=== PATIENT | female | born 1970 | race Caucasian/White ===

== ENCOUNTER 2019-03-09 22:15 | Emergency (ER) | payer BC, OTHER ==
[2019-03-10] MEDS ORDERED: ACETAMINOPHEN 325 MG TABLET PO ONE (00:17)
[2019-03-10 00:50] LABS: APPEARANCE,URINE CLOUDY; BILIRUBIN,URINE NEGATIVE (NEGATIVE); COLOR,URINE YELLOW; GLUCOSE, URINE NEGATIVE (NEGATIVE); KETONES,URINE NEGATIVE (NEGATIVE); LEUKOCYTE ESTERASE,URINE NEGATIVE (NEGATIVE); NITRITE,URINE NEGATIVE (NEGATIVE); PROTEIN,URINE 100 mg/dL (NEGATIVE); URINE SPECIFIC GRAVITY 1.029; UROBILINOGEN,URINE NEGATIVE mg/dL (<2.0)
[2019-03-10] MEDS ORDERED: ONDANSETRON HCL INJ/PF 4 MG/2 ML SDV IV ONE (01:15)
[2019-03-10] MEDS ORDERED: KETOROLAC TROMETHAMINE INJ/PF 30 MG/1 ML SDV IV ONE (01:16)
[2019-03-10] MEDS ORDERED: OXYCODONE-ACETAMINOPHEN 5-325 MG TABLET PO ONE (01:16)
--- NOTE | 2019-03-10 01:18 | ER Document Report ---
ED Medical Screen (RME) - General Chief Complaint: Lower Abdominal Pain Stated Complaint: ABDOMINAL PAIN Time Seen by Provider: 03/10/19 01:10 Primary Care Provider: MYRNA STOVER MD [Primary Care Provider] - Follow up as needed Notes: 48-year-old female with chief complaint of sharp pain in her left abdomen that radiates around her left side and flank, symptoms started tonight. Pain is intermittently much worse. She vomited. She denies fever/chills. She is currently on menstrual cycle. She does have a history of kidney stones but states this does not feel identical. Only surgeries are C-sections. TRAVEL OUTSIDE OF THE [place] IN LAST 30 DAYS: No - Related Data Allergies/Adverse Reactions: No Known Allergies Allergy (Unverified 03/09/19 22:18) Physical Exam - Vital signs Vitals: Temp Pulse Resp BP Pulse Ox 98.2 F 77 16 150/88 H 98 03/09/19 22:23 03/09/19 22:23 03/09/19 22:23 03/09/19 22:23 03/09/19 22:23 - Abdominal Tenderness: Tender - Generalized left-sided abdominal tenderness without spec ific area of tenderness or guarding - Back Back: No: CVA tenderness Course - Re-evaluation Re-evalutation: Patient has hematuria but she is also on her menstrual cycle. The pain is the worst over the left side just adjacent to the left upper quadrant. Slightly nonspecific, possibly stone. She is obviously uncomfortable. Medicating, work- up pending. I have greeted and performed a rapid initial assessment of this patient. A comprehensive ED assessment and evaluation of the patient, analysis of test results and completion of the medical decision making process will be conducted by additional ED providers. - Vital Signs Vital signs: Temp Pulse Resp BP Pulse Ox 98.2 F 77 16 150/88 H 98 03/09/19 22:23 03/09/19 22:23 03/09/19 22:23 03/09/19 22:23 03/09/19 22:23 - Laboratory Laboratory results interpreted by me: 03/10/19 00:19 Urine Protein 100 H Urine Blood LARGE H Doctor's Discharge - Discharge Referrals: MYRNA STOVER MD [Primary Care Provider] - Follow up as needed
[2019-03-10] MEDS ORDERED: NORMAL SALINE 1000 ML 1,000 ML IV ONE (02:28)
[2019-03-10] MEDS ORDERED: MORPHINE SULFATE 10 MG/ML INJ IV ONE (02:28)
[2019-03-10 02:43] LABS: ABSOLUTE BASOPHILS # (AUTO) 0.1 10^3/uL (0.0-0.2); ABSOLUTE LYMPHOCYTES (AUTO) 1.7 10^3/uL (0.5-4.7); ABSOLUTE MONOCYTES (AUTO) 0.4 10^3/uL (0.1-1.4); ABSOLUTE NEUT (AUTO) 8.2 10^3/uL (1.7-8.2); BASOPHILS % (AUTO) 0.6 % (0-2); EOSINOPHILS % (AUTO) 0.4 % (0-6); HEMATOCRIT 34.4 % (36.0-47.0); HEMOGLOBIN 11.6 g/dL (12.0-15.5); LYMPHOCYTES % (AUTO) 16.1 % (13-45); MEAN CORPUSCULAR HEMOGLOBIN 27.5 pg (27.0-33.4); MEAN CORPUSCULAR HGB CONC 33.8 g/dL (32.0-36.0); MEAN CORPUSCULAR VOLUME 82 fl (80-97); MONOCYTES % (AUTO) 3.6 % (3-13); PLATELET COUNT 322 10^3/uL (150-450); RED BLOOD COUNT 4.22 10^6/uL (3.72-5.28); RED CELL DISTRIBUTION WIDTH 14.8 % (11.5-14.0); SEGMENTED NEUTROPHILS % (AUTO) 79.3 % (42-78); TOTAL CELLS COUNTED % (AUTO) 100 %; WHITE BLOOD COUNT 10.3 10^3/uL (4.0-10.5)
[2019-03-10 02:57] LABS: ALANINE AMINOTRANSFERASE 23 U/L (9-52); ALBUMIN 4.2 g/dL (3.5-5.0); ALKALINE PHOSPHATASE 78 U/L (38-126); ANION GAP 8 (5-19); ASPARTATE AMINO TRANSFERASE 21 U/L (14-36); BILIRUBIN,DIRECT 0.2 mg/dL (0.0-0.4); BILIRUBIN,TOTAL 0.3 mg/dL (0.2-1.3); BLOOD UREA NITROGEN 15 mg/dL (7-20); CALCIUM 9.7 mg/dL (8.4-10.2); CARBON DIOXIDE 26 mmol/L (22-30); CHLORIDE 105 mmol/L (98-107); GLUCOSE 172 mg/dL (75-110); LIPASE 113.4 U/L (23-300); POTASSIUM 3.8 mmol/L (3.6-5.0); SODIUM 138.9 mmol/L (137-145); TOTAL PROTEIN 7.9 g/dL (6.3-8.2)
--- NOTE | 2019-03-10 03:48 | RADIOLOGY REPORT (SQ) ---
EXAM DESCRIPTION: CT ABDOMEN PELVIS WITHOUT IV CONTRAST COMPLETED DATE/TME: 03/10/2019 03:07 CLINICAL HISTORY: 48 years, Female, left flank and abd pain, vomiting COMPARISON: None. TECHNIQUE: Axial CT images of the abdomen and pelvis were obtained without contrast. Sagittal and coronal reformats were performed. DL 938 Images stored on PACS. All CT scanners at this facility use dose modulation, iterative reconstruction, and/or weight based dosing when appropriate to reduce radiation dose to as low as reasonably achievable (ALARA). [facility]: Dose Right [facility]: CareDose [facility]: Dose Right [facility]: Teradose 4D [facility]: [employer] LIMITATIONS: None. FINDINGS: The lung bases are clear. The liver, gallbladder, pancreas, spleen, and adrenal glands are unremarkable. The right kidney contains punctate nonobstructing stones. There is a stone within the proximal left ureter which measures up to 5 mm in AP dimension and approximately 7 mm in length causing mild hydroureter and hydronephrosis. There is an additional 3 mm stone along the upper pole of the left kidney. There is no intraperitoneal free air or fluid. There is no lymphadenopathy. The abdominal aorta is unremarkable. The stomach, small bowel and appendix appear unremarkable. There is a mild amount of stool within the colon. The urinary bladder and uterus appear unremarkable. There are no lytic or blastic bone lesions. IMPRESSION: Stone within the proximal left ureter measuring up to 5 mm in AP dimension and 7 mm and length causing mild hydroureter and hydronephrosis. Additional 3 mm stone along the upper pole of the left kidney. Nonobstructing right-sided nephrolithiasis. TECHNICAL DOCUMENTATION: Quality ID # [id number]: Final reports with documentation of one or more dose reduction techniques (e.g., Automated exposure control, adjustment of the mA and/or kV according to patient size, use of iterative reconstruction technique) copyright 2010 [employer]- All Rights Reserved
[2019-03-10] MEDS ORDERED: ONDANSETRON ODT 4 MG TAB (6 TAB/ER DISP) PO PRN (04:21)
[2019-03-10] MEDS ORDERED: HYDROCODONE/ACETAMINOPHEN 5-325 MG (6 TAB/ER DISP) PO PRN (04:22)
--- NOTE | 2019-03-10 04:29 | ER Document Report ---
ED GI/ - General Chief Complaint: Lower Abdominal Pain Stated Complaint: ABDOMINAL PAIN Time Seen by Provider: 03/10/19 01:10 Primary Care Provider: MYRNA STOVER MD [EMERITUS] - Follow up as needed Notes: Patient is a 48-year-old female with chief complaint of sharp pain in her left abdomen that radiates around her left side and flank, symptoms started tonight. Pain is intermittently much worse. She vomited. She denies fever/chills. She is currently on menstrual cycle. She does have a history of kidney stones but states this does not feel identical. Only surgeries are C-sections. TRAVEL OUTSIDE OF THE [place] IN LAST 30 DAYS: No - Related Data Allergies/Adverse Reactions: No Known Allergies Allergy (Unverified 03/09/19 22:18) Past Medical History - General Information source: Patient - Social History Smoking Status: Never Smoker Frequency of alcohol use: None Drug Abuse: None Lives with: Family Family History: Reviewed & Not Pertinent - Medical History Medical History: Negative Surgical Hx: Negative - Immunizations Immunizations up to date: Yes Hx Diphtheria, Pertussis, Tetanus Vaccination: Yes Review of Systems - Review of Systems Constitutional: No symptoms reported EENT: No symptoms reported Cardiovascular: No symptoms reported Respiratory: No symptoms reported Gastrointestinal: See HPI Genitourinary: See HPI Female Genitourinary: No symptoms reported Musculoskeletal: No symptoms reported Skin: No symptoms reported Hematologic/Lymphatic: No symptoms reported Neurological/Psychological: No symptoms reported Physical Exam - Vital signs Vitals: Temp Pulse Resp BP Pulse Ox 98.2 F 77 16 150/88 H 98 03/09/19 22:23 03/09/19 22:23 03/09/19 22:23 03/09/19 22:23 03/09/19 22:23 - Notes Notes: GENERAL: Initial exam in triage patient anxious and ill-appearing, on reevaluation is smiling and well-appearing. HEAD: Normocephalic, atraumatic. EYES: Pupils equal, round, and reactive to light. Extraocular movements intact. ENT: Oral mucosa moist, tongue midline. Oropharynx unremarkable. Airway patent. NECK: Full range of motion. Supple. Trachea midline. LUNGS: Clear to auscultation bilaterally, no wheezes, rales, or rhonchi. No resp iratory distress. HEART: Regular rate and rhythm. No murmur ABDOMEN: Generalized tenderness in the left mid to lower abdomen, no guarding, remaining abdomen is unremarkable. GENITOURINARY: Deferred EXTREMITIES: Moves all 4 extremities spontaneously. No edema, normal radial and dorsalis pedis pulses bilaterally. No cyanosis. BACK: no cervical, thoracic, lumbar midline tenderness. No saddle anesthesia, normal distal neurovascular exam. No flank pain or specific CVA tenderness noted. NEUROLOGICAL: Alert and oriented x3. Normal speech. PSYCH: Normal affect, normal mood. SKIN: Warm, dry, normal turgor. No rashes or lesions noted. Course - Re-evaluation Re-evalutation: Initially patient very uncomfortable, had just vomited, this was in triage. I saw her in the room is smiling, well-appearing. Denies any symptoms after Torad ol and Zofran, had declined morphine. Vital signs unremarkable. CBC unremarkable. Chemistry unremarkable. Urinalysis showing hematuria without nitrates, leukocyte esterase, or bacteria. Patient has not had a stone in a long time. Because of her intermittent severe pain we discussed possible CAT scan to evaluate what she is trying to pass or other etiology, this was agreed upon. CAT scan showing 5 x 7 proximal left ureteral stone with some hydronephrosis. Multiple nephrolithiasis. Discussed this with patient in detail. She requests referral to urologist. Provided with medications, discussed strict return precautions, provided with copy of her disc. Patient states satisfaction agre ement. Stable at time of discharge. - Vital Signs Vital signs: Temp Pulse Resp BP Pulse Ox 98.5 F 69 17 148/78 H 100 03/10/19 04:47 03/10/19 04:47 03/10/19 04:47 03/10/19 04:47 03/10/19 04:47 - Laboratory Result Diagrams: 03/10/19 02:35 03/10/19 02:35 Laboratory results interpreted by me: 03/10/19 03/10/19 03/10/19 00:19 02:35 02:35 Hgb 11.6 L Hct 34.4 L RDW 14.8 H Seg Neutrophils % 79.3 H Glucose 172 H Urine Protein 100 H Urine Blood LARGE H Discharge - Discharge Clinical Impression: Left flank pain Vomiting Qualifiers: Vomiting type: unspecified Vomiting Intractability: non-intractable Nausea presence: with nausea Qualified Code(s): R11.2 - Nausea with vomiting, unspecified Abdominal pain Qualifiers: Abdominal location: unspecified location Qualified Code(s): R10.9 - Unspecified abdominal pain Condition: Stable Disposition: HOME, SELF-CARE Additional Instructions: Your work-up shows that you are passing a 5 x 7 mm kidney stone on the left side. You also have additional kidney stones on both sides. It is very important that you follow-up closely with urology, call the listed referral today. Bring your CAT scan report. Take the pain medication if needed, take the nausea medication if needed, you can take ibuprofen with the use to reduce spasm. Take the Flomax to help pass the stone. If you develop a fever, uncontrolled vomiting, severe worsening pain, or any other concerning symptoms return immediately to the emergency department. [facility] [address] [place], [place] [id number] [facility] [address] [place], [place] [id number] Morris Landers MD Doctor in [place], [place] Address: [address] [place] [address] [address], [place] [address] Prescriptions: Ondansetron [Zofran Odt 4 mg Tablet] 1 - 2 tab PO Q4H PRN #20 tab.rapdis PRN Reason: For Nausea/Vomiting Oxycodone HCl/Acetaminophen [Percocet 5-325 mg Tablet] 1 - 2 tab PO Q6H PRN #20 tablet PRN Reason: Tamsulosin HCl [Flomax 0.4 mg Cap.sr] 0.4 mg PO DAILY #7 cap.sr.24h Forms: Return to Work, Treatment of Relative/Child Referrals: MYRNA STOVER MD [EMERITUS] - Follow up as needed
[2019-03-10 05:10] VITALS: BP 148/78
== END 2019-03-10 04:50 | disposition home or self-care (01) ==
LOC: ER 22:15
DX: R11.2 Nausea with vomiting, unspecified (principal); R10.9 Unspecified abdominal pain; R10.30 Lower abdominal pain, unspecified; N13.2 Hydronephrosis with renal and ureteral calculous obstruction
CPT/HCPCS: 99284; 96361; 96374; 96375; 36415; 83690; 84703; 85025; 80053; 81001; 74176; J1885; J2405; J7030

== ENCOUNTER 2020-10-28 00:07 | Emergency (ER) | payer OTHER ==
[2020-10-28] MEDS ORDERED: MORPHINE SULFATE 10 MG/ML INJ IV ONE (03:14)
[2020-10-28] MEDS ORDERED: KETOROLAC TROMETHAMINE INJ/PF 30 MG/1 ML SDV IV ONE (03:14)
[2020-10-28] MEDS ORDERED: ONDANSETRON HCL INJ/PF 4 MG/2 ML SDV IV ONE (03:14)
[2020-10-28] MEDS ORDERED: NORMAL SALINE 1000 ML 1,000 ML IV ONE (03:14)
--- NOTE | 2020-10-28 03:17 | ER Document Report ---
ED GI/ - General Chief Complaint: Flank Pain Stated Complaint: DIFFICULTY URINATING AND FLANK PAIN Time Seen by Provider: 10/28/20 03:07 Notes: Patient is a 50-year-old female that comes emergency department for chief complaint of left mid to lower abdominal pain, left side pain, and left flank pain. She states pain seems to come in waves and always feels like spasms, she states it was severe before she came in, improved, and then became nauseated and significantly worse just before she came back to the room. She denies vomiting, fever, dysuria. She does report urinary hesitancy. She has a history of kidney stones, has had lithotripsy for this, however she has no other diagnosed medical history. She has not had a colonoscopy. She reports normal bowel movements. Denies any other complaints. TRAVEL OUTSIDE OF THE [place] IN LAST 30 DAYS: No - Related Data Allergies/Adverse Reactions: No Known Allergies Allergy (Unverified 03/09/19 22:18) Home Medications: HCTZ 100mg Past Medical History - Social History Smoking Status: Never Smoker Chew tobacco use (# tins/day): No Frequency of alcohol use: Occasional Drug Abuse: None Family History: Reviewed & Not Pertinent - Past Medical History Cardiac Medical History: Reports: Hx Hypertension Renal/ Medical History: Reports: Hx Kidney Stones. Denies: Hx Peritoneal Dialysis Past Surgical History: Reports: Hx Section - x4, Hx Tubal Ligation - Immunizations Immunizations up to date: Yes Hx Diphtheria, Pertussis, Tetanus Vaccination: Yes Review of Systems - Review of Systems Constitutional: No symptoms reported EENT: No symptoms reported Cardiovascular: No symptoms reported Respiratory: No symptoms reported Gastrointestinal: See HPI Genitourinary: See HPI Female Genitourinary: No symptoms reported Musculoskeletal: See HPI Skin: No symptoms reported Hematologic/Lymphatic: No symptoms reported Neurological/Psychological: No symptoms reported Physical Exam - Vital signs Vitals: Temp Pulse Resp BP Pulse Ox 97.8 F 90 17 149/86 H 99 10/28/20 00:45 10/28/20 00:45 10/28/20 00:45 10/28/20 00:45 10/28/20 00:45 - Notes Notes: GENERAL: Patient does appear to be somewhat uncomfortable HEAD: Normocephalic, atraumatic. EYES: Pupils equal, round, and reactive to light. Extraocular movements intact. ENT: Oral mucosa moist, tongue midline. Oropharynx unremarkable. Airway patent. LUNGS: Clear to auscultation bilaterally, no wheezes, rales, or rhonchi. No respiratory distress. Non-tender chest wall. HEART: Regular rate and rhythm. No murmur ABDOMEN: Soft, non-tender. Non-distended. Bowel sounds present in all 4 quadrants. GENITOURINARY: Deferred EXTREMITIES: Moves all 4 extremities spontaneously. No edema, normal radial and dorsalis pedis pulses bilaterally. No cyanosis. BACK: no cervical, thoracic, lumbar midline tenderness. No saddle anesthesia, normal distal neurovascular exam. Moves all extremities in full range of motion. NEUROLOGICAL: Alert and oriented x3. Normal speech. Cranial nerves II through XII grossly intact. Strength 5/5 in all extremities. PSYCH: Normal affect, normal mood. SKIN: Warm, dry, normal turgor. No rashes or lesions noted. Course - Re-evaluation Re-evalutation: Patient initially uncomfortable but after medications her symptoms completely resolved. Vital signs unremarkable, no fever. CBC and chemistry are unremarkable. Urinalysis is strange with no leukocyte esterase but 130 white blood cells and red blood cells. There are also no squamous epithelials. No nitrates. No bacteria. I feel this is very indeterminate. Patient is hoping for CAT scan imaging to help determine what is going on, because of indeterminate urine I did agree to this. CAT scan showed 3 mm left-sided stone at the UVJ. This does show hydronephrosis and questionable infection. Urine catheter was performed for urinalysis and this was much more accurate. Urine shows some red blood cells but no white blood cells, I do not suspect infection. Discussed with patient, she states satisfaction, discussed follow-up, return precautions in detail. Patient states understanding and agreement. - Vital Signs Vital signs: Temp Pulse Resp BP Pulse Ox 97.5 F 88 15 151/84 H 99 10/28/20 06:13 10/28/20 06:13 10/28/20 06:13 10/28/20 06:13 10/28/20 06:13 - Laboratory Results Result Diagrams: 10/28/20 02:59 10/28/20 02:59 Laboratory Results Interpreted: 10/28/20 10/28/20 10/28/20 00:40 02:59 04:40 Glucose 140 H Urine Protein 100 H Urine Blood LARGE H LARGE H Critical Laboratory Results Reviewed: No Critical Results - Radiology Results Critical Radiology Results Reviewed: No Critical Results Discharge - Discharge Clinical Impression: Left flank pain Abdominal pain Qualifiers: Abdominal location: generalized Qualified Code(s): R10.84 - Generalized abdominal pain Condition: Stable Disposition: HOME, SELF-CARE Additional Instructions: You are passing a 3 mm kidney stone on the left side. Drink clear fluids, take the pain and nausea medication as prescribed as needed, follow-up with urology referral listed below. Return if you worsen including severe worsening pain, uncontrolled vomiting, fever, or any other concerning or worsening symptoms. [facility] [address] [place] [id number] [facility] [address] [place], [place] [id number] Prescriptions: Ketorolac Tromethamine [Toradol 10 mg Tablet] 10 mg PO Q8HP PRN #24 tablet PRN Reason: Oxycodone HCl/Acetaminophen [Percocet 5-325 mg Tablet] 1 - 2 tab PO TID PRN #15 tab PRN Reason: Ondansetron [Zofran Odt 4 mg Tablet] 1 - 2 tab PO Q4H PRN #15 tab.rapdis PRN Reason: For Nausea/Vomiting
[2020-10-28 03:24] LABS: ABSOLUTE EOSINOPHILS # (AUTO) 0.1 10^3/uL (0.0-0.6); ABSOLUTE LYMPHOCYTES (AUTO) 2.2 10^3/uL (0.5-4.7); ABSOLUTE MONOCYTES (AUTO) 0.6 10^3/uL (0.1-1.4); ABSOLUTE NEUT (AUTO) 6.2 10^3/uL (1.7-8.2); BASOPHILS % (AUTO) 0.3 % (0-2); EOSINOPHILS % (AUTO) 1.5 % (0-6); HEMATOCRIT 39.2 % (36.0-47.0); HEMOGLOBIN 13.4 g/dL (12.0-15.5); LYMPHOCYTES % (AUTO) 23.9 % (13-45); MEAN CORPUSCULAR HEMOGLOBIN 30.9 pg (27.0-33.4); MEAN CORPUSCULAR HGB CONC 34.1 g/dL (32.0-36.0); MEAN CORPUSCULAR VOLUME 91 fl (80-97); MONOCYTES % (AUTO) 6.2 % (3-13); PLATELET COUNT 280 10^3/uL (150-450); RED BLOOD COUNT 4.32 10^6/uL (3.72-5.28); RED CELL DISTRIBUTION WIDTH 13.3 % (11.5-14.0); SEGMENTED NEUTROPHILS % (AUTO) 68.1 % (42-78); TOTAL CELLS COUNTED % (AUTO) 100 %; WHITE BLOOD COUNT 9.1 10^3/uL (4.0-10.5)
[2020-10-28 03:31] LABS: APPEARANCE,URINE TURBID; BILIRUBIN,URINE NEGATIVE (NEGATIVE); COLOR,URINE YELLOW; GLUCOSE, URINE NEGATIVE (NEGATIVE); KETONES,URINE NEGATIVE (NEGATIVE); LEUKOCYTE ESTERASE,URINE NEGATIVE (NEGATIVE); NITRITE,URINE NEGATIVE (NEGATIVE); PROTEIN,URINE 100 mg/dL (NEGATIVE); UROBILINOGEN,URINE NEGATIVE mg/dL (<2.0)
[2020-10-28 03:59] LABS: ALBUMIN 4.2 g/dL (3.5-5.0); ALKALINE PHOSPHATASE 88 U/L (38-126); ANION GAP 9 (5-19); ASPARTATE AMINO TRANSFERASE 26 U/L (14-36); BILIRUBIN,DIRECT 0.2 mg/dL (0.0-0.4); BILIRUBIN,TOTAL 0.4 mg/dL (0.2-1.3); BLOOD UREA NITROGEN 18 mg/dL (7-20); CALCIUM 9.8 mg/dL (8.4-10.2); CARBON DIOXIDE 27 mmol/L (22-30); CHLORIDE 105 mmol/L (98-107); GLUCOSE 140 mg/dL (75-110); POTASSIUM 4.4 mmol/L (3.6-5.0); TOTAL PROTEIN 7.7 g/dL (6.3-8.2)
[2020-10-28 04:59] LABS: APPEARANCE,URINE CLEAR; BILIRUBIN,URINE NEGATIVE (NEGATIVE); COLOR,URINE STRAW; GLUCOSE, URINE NEGATIVE (NEGATIVE); KETONES,URINE NEGATIVE (NEGATIVE); LEUKOCYTE ESTERASE,URINE NEGATIVE (NEGATIVE); NITRITE,URINE NEGATIVE (NEGATIVE); PROTEIN,URINE NEGATIVE (NEGATIVE); URINE SPECIFIC GRAVITY 1.011; UROBILINOGEN,URINE NEGATIVE mg/dL (<2.0)
--- NOTE | 2020-10-28 05:40 | RADIOLOGY REPORT (SQ) ---
CT ABDOMEN AND PELVIS WITHOUT INTRAVENOUS CONTRAST: 10/28/2020 4:29 AM [employer] HISTORY: 50-year old with . COMPARISON: None available TECHNIQUE: Axial contiguous images were obtained from the lung bases to the proximal femurs without intravenous contrast administered. Sagittal and coronal reconstructions were also obtained and reviewed. This exam was performed according to our departmental dose-optimization program, which includes automated exposure control, adjustment of the mA and/or KV according to the patient's size and/or use of iterative reconstruction technique. FINDINGS: No focal consolidative airspace opacities are seen. No discrete pleural effusions are seen. Evaluation of the solid organs is limited by the lack of intravenous contrast. The visualized hepatic parenchyma demonstrates no focal abnormality. The gallbladder demonstrates no evidence of calcified gallstones. The spleen is normal in size. The pancreas is unremarkable. The bilateral adrenal glands are unremarkable. There is mild left hydroureteronephrosis secondary to a 3 mm calculus at the distal left ureterovesicular junction. There is stranding around the left kidney, and superimposed infection cannot be excluded. No hydronephrosis is seen on the right side. No renal or ureteral calculi are seen at the right kidney. The urinary bladder is mildly distended. The uterus is present. The stomach is mildly distended. The small bowel loops appear unremarkable. There are multiple diverticula seen within the sigmoid and descending colon, without evidence to suggest diverticulitis. An anterior umbilical hernia containing omental fat is seen. No pericolonic inflammatory stranding is seen. The appendix is unremarkable. There is no evidence of pneumoperitoneum or free fluid. The IVC is unremarkable. The visualized portions of the abdominal aorta are within normal limits of size. There is mild atherosclerotic obscuration of aorta. No significantly enlarged lymph nodes are seen in the abdomen or pelvis. Review of the bone show no evidence of any suspicious lytic or blastic lesions. Multilevel degenerative changes are seen within the lumbar spine. Multilevel disc osteophytes are seen at the lumbar spine. IMPRESSION: There is mild left hydroureteronephrosis secondary to a 3 mm calculus at the distal left ureterovesicular junction. There is stranding around the left kidney, and superimposed infection cannot be excluded.
[2020-10-28 06:14] VITALS: BP 151/84
== END 2020-10-28 06:13 | disposition home or self-care (01) ==
LOC: ER 00:07
DX: R10.32 Left lower quadrant pain (principal); R10.84 Generalized abdominal pain; R11.0 Nausea; I10 Essential (primary) hypertension; Z87.442 Personal history of urinary calculi
CPT/HCPCS: 99285; 96361; 96374; 96375; 36415; 83690; 85025; 80053; 81001; 74176; J1885; J2270; J2405; J7030